=== PATIENT | female | born 1945 | race Caucasian/White ===

== ENCOUNTER 2019-10-17 14:28 | Emergency (ER) | payer MEDICARE ==
[2019-10-17] MEDS ORDERED: NS 0.9% 1000 ML** 1,000 ML IV ONE (14:48)
--- NOTE | 2019-10-17 15:23 | ED ---
Nausea/Vomiting/Diarrhea HPI - HPI Summary HPI Summary: Patient is a 73-year-old female who presents emergency department for an episode of nausea, vomiting and diarrhea that occurred about an hour ago. Patient states she was eating a fish sandwich with her when she suddenly started to feel "funny" and vomited. Patient states she felt lightheaded as well. Patient's states that patient all of a sudden started staring off and he tried to help her out of the chair but she threw up and then had an episode of diarrhea. No LOC. Patient states since being in the ER she is feeling much better. Patient denies associated symptoms of chest pain , shortness of breath, headache, vision changes, numbness, tingling or weakness. Pt. notes she has had a mild "cold" and has had a cough. Past medical history of hypertension. Symptoms are moderate in severity. No current modifying factors. Patient currently has no complaints emergency Department. states she is at her baseline. - History of Current Complaint Chief Complaint: EDNauseaVomitDiarrh Stated Complaint: VOMITING PER EMS Time Seen by Provider: 10/17/19 14:34 Hx Obtained From: Patient, Family/Crystal Mounter Pain Intensity: 0 - Allergies/Home Medications Allergies/Adverse Reactions: Allergies Allergy/AdvReac Type Severity Reaction Status Date / Time No Known Allergies Allergy Verified 01/24/17 13:39 PMH/Surg Hx/FS Hx/Imm Hx Previously Healthy: Yes Musculoskeletal History: Denies: Hx Rheumatoid Arthritis, Hx Osteoporosis Infectious Disease History: No Infectious Disease History: Denies: Traveled Outside the [place] in Last 30 Days - Social History Occupation: Retired Lives: With Family Review of Systems Constitutional: Negative Negative: Fever Eyes: Negative ENT: Negative Cardiovascular: Negative Negative: Palpitations, Chest Pain Respiratory: Negative Negative: Shortness Of Breath, Cough Positive: Vomiting, Diarrhea, Nausea. Negative: Abdominal Pain Genitourinary: Negative Negative: burning, dysuria Skin: Negative Neurological: Negative Negative: Headache, Weakness, Paresthesia, Numbness, Syncope, Slurred Speech All Other Systems Reviewed And Are Negative: Yes Physical Exam Triage Information Reviewed: Yes Vital Signs On Initial Exam: Initial Vitals Temp Pulse Resp BP Pulse Ox 97.0 F 89 20 127/48 97 10/17/19 14:31 10/17/19 14:31 10/17/19 14:31 10/17/19 14:31 10/17/19 14:31 Vital Signs Reviewed: Yes Appearance: Positive: Well-Appearing - Pt. sitting up in bed in NAD. Answers questions appropriately. Skin: Positive: Warm, Dry Head/Face: Positive: Normal Head/Face Inspection Eyes: Positive: Normal, EOMI, WILFRIDO Neck: Positive: Supple Respiratory/Lung Sounds: Positive: Clear to Auscultation, Breath Sounds Present Cardiovascular: Positive: Normal, RRR Abdomen Description: Positive: Nontender, Soft Neurological: Positive: Normal, CN Intact II-III Psychiatric: Positive: Affect/Mood Appropriate Procedures - Sedation Patient Received Moderate/Deep Sedation with Procedure: No Diagnostics - Vital Signs Vital Signs Temp Pulse Resp BP Pulse Ox 10/17/19 14:31 97.0 F 89 20 127/48 97 - Laboratory Result Diagrams: 10/17/19 15:39 10/17/19 15:39 Lab Statement: Any lab studies that have been ordered have been reviewed, and results considered in the medical decision making process. Naus/Vom/Diarrhea Course/Dx - Course Course Of Treatment: Pt. presenting after an episode of vomiting and diarrhea. In the ED she has zero complaints and states she feels well. Afebrile with stable VS. ECG done at 1505 shows a sinus rhythm of 82bpm, normal axis, no ST elevation. Labs unremarkable other than WBC of 16k. CRP minimally elevated. U/ A negative for infection. CXR negative for infiltrate per radiology. On re-exam pt. feeling well and is requesting to be dc home. Rx for zofran given. To f.u with pcp on Saturday. To increase fluids and rest. To return to ER if symptoms change or worsen. - Differential Dx/Diagnosis Differential Diagnoses - Female: Appendicitis, Constipation, Diverticulitis, Gerd, Gastroenteritis (Viral), Gastroenteritis (Bacterial), Vomiting, Diarrhea Provider Diagnosis: Nausea vomiting and diarrhea Condition At Discharge: Improved Discharge ED - Sign-Out/Discharge Documenting (check all that apply): Patient Departure - Discharge Plan Condition: Improved Disposition: HOME Prescriptions: Ondansetron TAB* [Zofran 4 MG Tab*] 4 mg PO Q6H PRN #12 tab PRN Reason: Nausea Patient Education Materials: Acute Nausea and Vomiting (ED), Acute Diarrhea (ED ) Referrals: Felix Jensen MD [Primary Care Provider] - Additional Instructions: Call PCP on Saturday for an appointment within 2 days for recheck Increase fluids and rest Zofran as needed for nausea/vomiting Return to ER if symptoms change or worsen - Billing Disposition and Condition Condition: IMPROVED Disposition: Home
[2019-10-17 15:46] LABS: ABS Basophils 0.1 10^3/ul (0-0.2); ABS Eosinophils 0.1 10^3/ul (0-0.6); ABS Lymphocytes 1.2 10^3/ul (1.0-4.8); ABS Monocytes 0.7 10^3/ul (0-0.8); Eosinophil % 0.8 %; Hematocrit 42 % (35-47); Hemoglobin 13.9 g/dL (12.0-16.0); Lymphocyte % 7.4 %; Mean Corpuscular HGB Conc 34 g/dL (31-36); Mean Corpuscular Hemoglobin 32 pg (27-31); Mean Corpuscular Volume 96 fL (80-97); Mean Platelet Volume 9.1 fL (7.4-10.4); Nucleated Red Blood Cells % 0.3; Platelet Count 313 10^3/uL (150-450); Red Blood Count 4.34 10^6 /uL (3.70-4.87); Red Cell Distribution Width 12 % (10-15); White Blood Count 16.1 10^3/uL (3.5-10.8)
[2019-10-17 15:56] LABS: Activated Partial Thrombo Time 34.1 seconds (26.0-38.0); INR 1.12 (0.82-1.09)
[2019-10-17 16:08] LABS: Albumin 3.6 g/dL (3.2-5.2); BUN/Creatinine Ratio 21.6 (8-20); C Reactive Protein 13.86 mg/L (<8.01); Calcium 9.3 mg/dL (8.6-10.3); EGFR African American 67.9 (>60); EGFR Non-African American 56.1 (>60); Globulin 3.7 g/dL (2-4); Magnesium 2.1 mg/dL (1.9-2.7); Potassium 4.3 mmol/L (3.5-5.0); Total Bilirubin 0.3 mg/dL (0.2-1.0); Total Protein 7.3 g/dL (6.4-8.9)
[2019-10-17 16:11] LABS: Troponin I 0.01 ng/mL (<0.03)
[2019-10-17 16:27] LABS: Urine Appearance Cloudy; Urine Bilirubin Negative (Negative); Urine Blood Negative (Negative); Urine Color Straw; Urine Glucose Negative (Negative); Urine Ketones Negative (Negative); Urine Nitrite Negative (Negative); Urine Protein Negative (Negative); Urine Specific Gravity 1.006 (1.010-1.030); Urine Urobilinogen Negative (Negative)
[2019-10-17 16:33] LABS: Urine Bacteria Absent (Absent); Urine Red Blood Cell Absent (Absent); Urine Squamous Epithelial Cell Present (Absent); Urine White Blood Cell Trace(0-5/hpf) (Absent)
[2019-10-17 18:31] VITALS: BP 168/89
--- NOTE | 2019-10-19 05:46 | ED ---
Imaging and Labs Follow Up Follow Up Type: Labs/Cultures Labs/Culture Result: urine culture prelim Ecoli [id number] moderate colony count and pt asympatomatic. Patient Communication/Plan: pt NOT dc'd with abx, no abx necessary Patient Communication/Plan: no treatment required Provider Diagnoses: Nausea vomiting and diarrhea
== END 2019-10-17 18:33 | disposition home or self-care (01) ==
LOC: ED 14:28
DX: R11.2 Nausea with vomiting, unspecified (principal); R19.7 Diarrhea, unspecified
CPT/HCPCS: 36415; 71045; 80053; 81003; 81015; 83605; 83690; 83735; 84484; 85025; 85610; 85730; 86140; 87077; 87086; 87186; 93005; 99283